=== PATIENT | male | born 1950 | race Caucasian/White ===

== ENCOUNTER 2018-01-23 04:23 | Inpatient (IN) | payer OTHER ==
[2018-01-23] MEDS ORDERED: FENTANYL CITR 100 MCG/2 ML ONE ×2 (04:51→11:47)
[2018-01-23] MEDS ORDERED: NA CHLORIDE 0.9% 1,000 ML ONE (04:51)
[2018-01-23] MEDS ORDERED: FAMOTIDINE 20 MG/2 ML VIAL IV ONE (04:51)
[2018-01-23] MEDS ORDERED: ONDANSETRON 4 MG/2 ML VIAL ONE ×2 (04:53→07:17)
[2018-01-23 05:06] LABS: Absolute Lymphocytes (CBC) 1.3 K/uL (0.7-4.9); Absolute Monocytes 1.1 K/uL (0.1-1.3); Absolute Neutrophil 12.2 K/uL (1.8-8.0); Basophils % 0.2 % (0-1.3); Eosinophils % 0.2 % (0-4.4); Hematocrit 46.4 % (39.6-49.0); MCH 32.5 pg (27.0-35.0); MCV 92.4 fL (80-100); MPV 11.4 fL (7.6-11.3); Monocytes % 7.3 % (3.3-12.3); RBC Red Blood Cell Count 5.02 M/uL (4.33-5.43)
[2018-01-23 05:37] LABS: Albumin 4.2 g/dL (3.4-5.0); Bilirubin Direct 0.2 mg/dL (0-0.2); Bilirubin Total 0.6 mg/dL (0.2-1.0); CKMB Creatine Kinase MB 1.9 ng/mL (0.3-3.6); Magnesium 1.9 mg/dL (1.8-2.4); Potassium 3.7 mmol/L (3.5-5.1); Protein, Total 7.8 g/dL (6.4-8.2)
--- NOTE | 2018-01-23 07:02 | EKG ---
Test Date: 2018-01-23 Test Time: 04:47:41 Survey Coordinator: [place] MEASUREMENT RESULTS: Intervals: Rate: 56 OK: 166 QRSD: 92 QT: 420 QTc: 405 Covel: P: 63 OK: 166 QRS: -17 T: 31 INTERPRETIVE STATEMENTS: Sinus bradycardia with sinus arrhythmia Otherwise normal ECG Compared to ECG 03/30/2009 12:44:36 No significant changes Electronically Signed On 01-23-18 07:01:15 CDT by Malik Romero
--- NOTE | 2018-01-23 07:06 | EDPHYS ---
Physician Documentation [facility] Name: Yves Joiner Age: 67 yrs Sex: Male : 1950 Arrival Date: 01/23/2018 Time: 04:26 Bed 6 Private MD: Antwan Hackett ED Physician Zurdo Rogers HPI: 01/23 04:53 This 67 yrs old Male presents to ER via Ambulatory with complaints of bk Abdominal Pain. 04:53 The patient presents with abdominal pain in the epigastric area, in the upper abdomen, bk abdominal distention in the epigastric area, in the upper abdomen. Onset: The symptoms/episode began/occurred this morning. The symptoms radiate to Associated signs and symptoms: Pertinent positives: nausea. The symptoms are described as crampy. Modifying factors: The symptoms are alleviated by nothing, the symptoms are aggravated by food, pressure. Severity of pain: At its worst the pain was moderate in the emergency department the pain is unchanged. The patient has not experienced similar symptoms in the past. Historical: - Allergies: 04:42 No Known Allergies; tl2 - Home Meds: 04:42 bisoprolol fumarate oral oral [Active]; atorvastatin oral oral [Active]; Metformin Oral tl2 [Active]; B12 [Active]; - PMHx: 04:42 Hyperlipidemia; Hypertension; tl2 - PSHx: 04:42 Appendectomy; tl2 - Immunization history:: Adult Immunizations up to date. - Social history:: Smoking status: Patient/guardian denies using tobacco. - Ebola Screening: : No symptoms or risks identified at this time. - Family history:: not pertinent. ROS: 04:53 Constitutional: Negative for fever, chills, and weight loss, Eyes: Negative for injury, bk pain, redness, and discharge, ENT: Negative for injury, pain, and discharge, Neck: Negative for injury, pain, and swelling, Cardiovascular: Negative for chest pain, palpitations, and edema, Respiratory: Negative for shortness of breath, cough, wheezing, and pleuritic chest pain, Back: Negative for injury and pain, : Negative for injury, bleeding, discharge, and swelling, MS/Extremity: Negative for injury and deformity, Skin: Negative for injury, rash, and discoloration, Neuro: Negative for headache, weakness, numbness, tingling, and seizure, Psych: Negative for depression, anxiety, suicide ideation, homicidal ideation, and hallucinations, Allergy/Immunology: Negative for hives, rash, and allergies, Endocrine: Negative for neck swelling, polydipsia, polyuria, polyphagia, and marked weight changes, Hematologic/Lymphatic: Negative for swollen nodes, abnormal bleeding, and unusual bruising. 04:53 Abdomen/GI: Positive for abdominal pain, nausea, abdominal cramps, of the epigastric area and right upper quadrant. Exam: 04:53 Constitutional: This is a well developed, well nourished patient who is awake, alert, bk and in no acute distress. Head/Face: Normocephalic, atraumatic. Eyes: Pupils equal round and reactive to light, extra-ocular motions intact. Lids and lashes normal. Conjunctiva and sclera are non-icteric and not injected. Cornea within normal limits. Periorbital areas with no swelling, redness, or edema. ENT: Nares patent. No nasal discharge, no septal abnormalities noted. Tympanic membranes are normal and external auditory canals are clear. Oropharynx with no redness, swelling, or masses, exudates, or evidence of obstruction, uvula midline. Mucous membranes moist. Neck: Trachea midline, no thyromegaly or masses palpated, and no cervical lymphadenopathy. Supple, full range of motion without nuchal rigidity, or vertebral point tenderness. No Meningismus. Chest/axilla: Normal chest wall appearance and motion. Nontender with no deformity. No lesions are appreciated. Cardiovascular: Regular rate and rhythm with a normal S1 and S2. No gallops, murmurs, or rubs. Normal PMI, no JVD. No pulse deficits. Respiratory: Lungs have equal breath sounds bilaterally, clear to auscultation and percussion. No rales, rhonchi or wheezes noted. No increased work of breathing, no retractions or nasal flaring. Back: No spinal tenderness. No costovertebral tenderness. Full range of motion. Male : Normal genitalia with no discharge or lesions. Skin: Warm, dry with normal turgor. Normal color with no rashes, no lesions, and no evidence of cellulitis. MS/ Extremity: Pulses equal, no cyanosis. Neurovascular intact. Full, normal range of motion. Neuro: Awake and alert, GCS 15, oriented to person, place, time, and situation. Cranial nerves II-XII grossly intact. Motor strength 5/5 in all extremities. Sensory grossly intact. Cerebellar exam normal. Normal gait. Psych: Awake, alert, with orientation to person, place and time. Behavior, mood, and affect are within normal limits. 04:53 Abdomen/GI: Inspection: distension, Bowel sounds: normal, Palpation: mild abdominal tenderness, moderate abdominal tenderness, in the epigastric area and right upper quadrant, Liver: no appreciated palpable abnormalities, Hernia: not appreciated. Vital Signs: 04:42 BP 163 / 93; Pulse 57; Resp 18; Temp 97.9(O); Pulse Ox 95% on R/A; Weight 102.06 kg; tl2 Height 6 ft. 0 in. (182.88 cm); Pain 7/10; 05:45 BP 138 / 80; Pulse 50; Resp 18; Pulse Ox 100% on R/A; tl2 06:33 BP 138 / 77; Pulse 78; Resp 18; Pulse Ox 98% on R/A; tl2 07:20 BP 133 / 70; Pulse 57; Resp 17; Pulse Ox 100% on R/A; Pain 7/10; tw2 08:08 BP 129 / 54; Pulse 60; Resp 17; Pulse Ox 100% on R/A; tw2 04:42 Body Mass Index 30.52 (102.06 kg, 182.88 cm) tl2 MDM: 04:33 Patient medically screened. [facility] 04:55 Data reviewed: vital signs, nurses notes, lab test result(s), EKG, radiologic studies, [facility] CT scan, plain films, ultrasound. 01/23 04:34 Order name: Basic Metabolic Panel; Complete Time: 05:38 [facility] 01/23 04:34 Order name: CBC with Diff; Complete Time: 05:38 [facility] 01/23 04:34 Order name: Ckmb; Complete Time: 05:38 [facility] 01/23 04:34 Order name: CPK; Complete Time: 05:38 [facility] 01/23 04:34 Order name: LFT's; Complete Time: 05:38 [facility] 01/23 04:34 Order name: Magnesium; Complete Time: 05:38 [facility] 01/23 04:34 Order name: NT PRO-BNP; Complete Time: 05:38 [facility] 01/23 04:34 Order name: PT-INR; Complete Time: 05:38 [facility] 01/23 04:34 Order name: Ptt, Activated; Complete Time: 05:38 [facility] 01/23 04:34 Order name: Troponin (emerg Dept Use Only) [facility] 01/23 04:34 Order name: Lipase; Complete Time: 05:38 [facility] 01/23 06:22 Order name: Urine Dipstick--Ancillary (enter results) ms 01/23 07:18 Order name: Basic Metabolic Panel EDMS 01/23 07:18 Order name: Basic Metabolic Panel EDSC 01/23 04:34 Order name: XRAY Chest (1 view) [facility] 01/23 04:56 Order name: US Abdomen Limited [facility] 01/23 05:43 Order name: Abdomen EDMS 01/23 07:18 Order name: CBC with Automated Diff EDSC 01/23 07:18 Order name: CBC with Automated Diff EDMS 01/23 07:18 Order name: Lipase EDMS 01/23 07:18 Order name: Lipase EDMS 01/23 07:18 Order name: Liver (Hepatic) Function EDMS 01/23 07:18 Order name: Liver (Hepatic) Function EDSC 01/23 04:34 Order name: EKG; Complete Time: 04:35 [facility] 01/23 04:34 Order name: Cardiac monitoring; Complete Time: 04:47 [facility] 01/23 04:34 Order name: EKG - Nurse/Tech; Complete Time: 04:47 [facility] 01/23 04:34 Order name: IV Saline Lock; Complete Time: 04:47 [facility] 01/23 04:34 Order name: Labs collected and sent; Complete Time: 04:47 [facility] 01/23 04:34 Order name: O2 Per Protocol; Complete Time: 04:47 [facility] 01/23 04:34 Order name: O2 Sat Monitoring; Complete Time: 04:47 [facility] 01/23 04:34 Order name: Urine Dipstick-Ancillary (obtain specimen); Complete Time: 06:22 [facility] 01/23 07:18 Order name: NPO EDMS Administered Medications: 04:55 Drug: Zofran 4 mg Route: IVP; Site: left antecubital; bb 04:59 Drug: NS 0.9% 1000 ml Route: IV; Rate: 1 bolus; Site: left antecubital; bb 04:59 Drug: fentaNYL (PF) 50 mcg Route: IVP; Site: left antecubital; bb 07:10 Follow up: Response: Pain is unchanged, physician notified tw2 05:00 Drug: Pepcid 20 mg Route: IVP; Site: left antecubital; bb 07:20 Drug: Zofran 4 mg Route: IVP; Site: left antecubital; tw2 08:12 Follow up: Response: No adverse reaction tw2 07:22 Drug: morphine 4 mg Route: IVP; Site: left antecubital; tw2 08:12 Follow up: Response: No adverse reaction; Pain is unchanged, physician notified tw2 07:24 Drug: Zosyn 3.375 grams Route: IVPB; Infused Over: 60 mins; Site: left antecubital; tw2 08:25 Follow up: Response: No adverse reaction; IV Status: Completed infusion tw2 08:11 CANCELLED (Duplicate Order): Zofran 4 mg IVP once; over 2 minutes tw2 08:25 Drug: Dilaudid 0.5 mg Route: IVP; Site: left antecubital; tw2 08:41 Follow up: Response: Pain is decreased tw2 Disposition: 01/23/18 07:05 Hospitalization ordered by David Monzon for Inpatient Admission. Preliminary diagnosis are Cholecystitis, Cholelithiasis, Abdominal tenderness, Elevated white blood cell count, Unspecified kidney failure - insufficency. - Bed requested for Telemetry/MedSurg (Inpatient). - Status is Inpatient Admission. tw2 - Condition is Fair. - Problem is new. - Symptoms have improved. UTI on Admission? No Signatures: Dispatcher [employer] EDSC Kerrie Kitchen RN RN mw Anderson, Corey, MD MD cha Ballard, Brenda, RN RN bb Wise, Tara, RN RN tw2 Delmis Ba, RN RN tl2 Corrections: (The following items were deleted from the chart) 05:43 04:35 Abdomen Pelvis W Con+CT.RAD.BRZ ordered. [facility] EDSC 07:39 07:05 Hospitalization Ordered by David Monzon MD for Inpatient Admission. Preliminary diagnosis is Cholecystitis; Cholelithiasis; Abdominal tenderness; Elevated white blood cell count; Unspecified kidney failure - insufficency. Bed requested for Telemetry/MedSurg (Inpatient). Status is Inpatient Admission. Condition is Fair. Problem is new. Symptoms have improved. UTI on Admission? No. bk 08:11 08:06 Zofran 4 mg IVP once; over 2 minutes ordered. [facility] tw2 08:45 07:39 01/23/2018 07:05 Hospitalization Ordered by David Monzon MD for Inpatient tw2 Admission. Preliminary diagnosis is Cholecystitis; Cholelithiasis; Abdominal tenderness; Elevated white blood cell count; Unspecified kidney failure - insufficency. Bed requested for Telemetry/MedSurg (Inpatient). Status is Inpatient Admission. Condition is Fair. Problem is new. Symptoms have improved. UTI on Admission? No. mw
--- NOTE | 2018-01-23 07:06 | ER ---
Nurse's Notes [facility] Name: Yves Joiner Age: 67 yrs Sex: Male : 1950 Arrival Date: 01/23/2018 Time: 04:26 Bed 6 Private MD: Antwan Hackett Diagnosis: Cholecystitis;Cholelithiasis;Abdominal tenderness;Elevated white blood cell count;Unspecified kidney failure-insufficency Presentation: 01/23 04:39 Presenting complaint: Patient states: Epigastric/abdominal pain since 1600 yesterday. tl2 Denies NVD. Transition of care: patient was not received from another setting of care. Onset of symptoms was January 22, 2018 at 16:00. Risk Assessment: Do you want to hurt yourself or someone else? Patient reports no desire to harm self or others. Initial Sepsis Screen: Does the patient meet any 2 criteria? No. Patient's initial sepsis screen is negative. Does the patient have a suspected source of infection? No. Patient's initial sepsis screen is negative. Care prior to arrival: None. 04:39 Method Of Arrival: Ambulatory tl2 04:39 Acuity: KENDAL 3 tl2 Triage Assessment: 04:42 General: Appears in no apparent distress. uncomfortable, Behavior is calm, cooperative, tl2 appropriate for age. Pain: Complains of pain in epigastric area, right upper quadrant and left upper quadrant Pain does not radiate. Pain currently is 7 out of 10 on a pain scale. Quality of pain is described as sharp, Is continuous. Neuro: Level of Consciousness is awake, alert, obeys commands, Oriented to person, place, time, situation. Cardiovascular: Denies chest pain. Respiratory: Airway is patent Respiratory effort is even, unlabored, Respiratory pattern is regular, symmetrical. GI: Patient currently denies diarrhea, nausea, vomiting. : No signs and/or symptoms were reported regarding the genitourinary system. Derm: Skin is pink, warm \T\ dry. Historical: - Allergies: 04:42 No Known Allergies; tl2 - Home Meds: 04:42 bisoprolol fumarate oral oral [Active]; atorvastatin oral oral [Active]; Metformin Oral tl2 [Active]; B12 [Active]; - PMHx: 04:42 Hyperlipidemia; Hypertension; tl2 - PSHx: 04:42 Appendectomy; tl2 - Immunization history:: Adult Immunizations up to date. - Social history:: Smoking status: Patient/guardian denies using tobacco. - Ebola Screening: : No symptoms or risks identified at this time. - Family history:: not pertinent. Screenin:46 Abuse screen: Denies threats or abuse. Nutritional screening: No deficits noted. tl2 Tuberculosis screening: No symptoms or risk factors identified. Fall Risk None identified. Assessment: 04:46 General: see triage assessment. tl2 07:43 GI: Bowel sounds present X 4 quads. Abd is soft X 4 quads. tw2 Vital Signs: 04:42 BP 163 / 93; Pulse 57; Resp 18; Temp 97.9(O); Pulse Ox 95% on R/A; Weight 102.06 kg; tl2 Height 6 ft. 0 in. (182.88 cm); Pain 7/10; 05:45 BP 138 / 80; Pulse 50; Resp 18; Pulse Ox 100% on R/A; tl2 06:33 BP 138 / 77; Pulse 78; Resp 18; Pulse Ox 98% on R/A; tl2 07:20 BP 133 / 70; Pulse 57; Resp 17; Pulse Ox 100% on R/A; Pain 7/10; tw2 08:08 BP 129 / 54; Pulse 60; Resp 17; Pulse Ox 100% on R/A; tw2 04:42 Body Mass Index 30.52 (102.06 kg, 182.88 cm) tl2 ED Course: 04:26 Patient arrived in ED. al2 04:27 Antwan Hackett MD is Private Physician. al2 04:33 Zurdo Rogers MD is Attending Physician. bk 04:39 Triage completed. tl2 04:42 Arm band placed on right wrist. EKG completed in triage. Results shown to MD. tl2 04:46 Patient has correct armband on for positive identification. Bed in low position. Call tl2 light in reach. Side rails up X 1. Adult w/ patient. 04:46 Inserted saline lock: 20 gauge in left antecubital area, using aseptic technique. Blood tl2 collected. placed by ALICE Carter. 04:47 Delmis Ba RN is Primary Nurse. tl2 05:24 X-ray completed. Patient tolerated procedure well. kw 05:26 XRAY Chest (1 view) In Process Unspecified. EDMS 06:04 Abdomen In Process Unspecified. EDMS 06:34 Patient taken to ultrasound. traci 06:53 David Monzon MD is Hospitalizing Provider. bk 07:00 US Abdomen Limited In Process Unspecified. EDMS 07:19 Patient moved back from ultrasound. traci 07:42 Awaiting: attempted to call report, was told the nurse doesn't know she is getting a tw2 patient yet. 07:43 No provider procedures requiring assistance completed. Patient admitted, IV remains in tw2 place. 08:14 Awaiting: attempted to call report, on hold for 10 minutes, called back, left on hold tw2 again. Administered Medications: 04:55 Drug: Zofran 4 mg Route: IVP; Site: left antecubital; bb 04:59 Drug: NS 0.9% 1000 ml Route: IV; Rate: 1 bolus; Site: left antecubital; bb 04:59 Drug: fentaNYL (PF) 50 mcg Route: IVP; Site: left antecubital; bb 07:10 Follow up: Response: Pain is unchanged, physician notified tw2 05:00 Drug: Pepcid 20 mg Route: IVP; Site: left antecubital; bb 07:20 Drug: Zofran 4 mg Route: IVP; Site: left antecubital; tw2 08:12 Follow up: Response: No adverse reaction tw2 07:22 Drug: morphine 4 mg Route: IVP; Site: left antecubital; tw2 08:12 Follow up: Response: No adverse reaction; Pain is unchanged, physician notified tw2 07:24 Drug: Zosyn 3.375 grams Route: IVPB; Infused Over: 60 mins; Site: left antecubital; tw2 08:25 Follow up: Response: No adverse reaction; IV Status: Completed infusion tw2 08:11 CANCELLED (Duplicate Order): Zofran 4 mg IVP once; over 2 minutes tw2 08:25 Drug: Dilaudid 0.5 mg Route: IVP; Site: left antecubital; tw2 08:41 Follow up: Response: Pain is decreased tw2 Outcome: 07:05 Decision to Hospitalize by Provider. bk 08:30 Admitted to Med/surg accompanied by tech, via wheelchair, room 232, Report called to tw2 alice bejarano 08:30 Condition: stable 08:30 Instructed on the need for admit. 08:45 Patient left the ED. tw2 Signatures: Dispatcher [employer] Zurdo Rodriguez MD MD cha Ballard, Brenda RN RN Gretta Camacho Jacques jd Wise, Tara, RN RN tw2 Delmis Ba RN RN tl2 Michelle, Rocio velasquez2
[2018-01-23] MEDS ORDERED: MORPHINE 4 MG/ML SYR IV PRN (07:12)
[2018-01-23] MEDS ORDERED: PIPER/TAZO/NS 3.375gm 3.375 GM/100 ML BAG ONE (07:12)
[2018-01-23] MEDS ORDERED: ONDANSETRON 4 MG/2 ML VIAL IV PRN (07:12)
[2018-01-23] MEDS ORDERED: MORPHINE 4 MG/ML SYR ONE (07:16)
[2018-01-23] MEDS: NA CHLORIDE 0.9% 1,000 ML IV SCH ×2 (08:00→15:19)
[2018-01-23] MEDS ORDERED: HYDROMORPHONE HCL 0.5 MG/0.5 ML INJ ONE (08:23)
--- NOTE | 2018-01-23 08:43 | RAD REPORT ---
EXAM DESCRIPTION: RAD - Chest Single View - 01/23/2018 5:26 am CLINICAL HISTORY: Cough;Abdominal distention Chest pain. COMPARISON: CHEST PA AND LAT 2 VIEW dated 04/19/2014; ABDOMEN 1 VIEW KUB dated 07/03/2012; CHEST PA A ND LAT 2 VIEW dated 06/23/2012; CHEST PA AND LAT 2 VIEW dated 06/18/2011 FINDINGS: Portable technique limits examination quality. The lungs are grossly clear. The heart is normal in size. No displaced fractures. IMPRESSION: No acute intrathoracic process suspected.
--- NOTE | 2018-01-23 08:50 | RAD REPORT ---
EXAM DESCRIPTION: CT - Abdomen Pelvis Wo Contrast - 01/23/2018 7:06 am CLINICAL HISTORY: Abdominal pain. ABD PAIN COMPARISON: Abdomen Exam Limited dated 01/23/2018 TECHNIQUE: CT imaging of the abdomen and pelvis was performed without contrast. Solid organ and vasc ular assessment is limited due to lack of IV contrast. All CT scans are performed using dose optimization technique as appropriate and may include automated exposure control or mA/KV adjustment according to patient size. FINDINGS: The lower lung el are clear.Small gallstone is present in gallbladder. The gallbladder appears distended with trace pericholecystic fluid along the fundus. The liver contains several low-density lesions of varying size, the largest in the left lobe measurin g 3 cm and the largest in the inferior right lobe measuring 1.4 cm. These are nonspecific but favored to represent benign cysts or other benign hepatic lesions. No intrahepatic biliary dilatation. The s pleen, pancreas, adrenal glands and left kidney are within normal limits for a limited non-contrast e xamination.Small stones are seen in the inferior right kidney the largest measuring 3 mm. No hydronep hrosis. No bowel obstruction, free air, free fluid or abscess. Sigmoid diverticulosis is present without dive rticulitis. The appendix appears absent. The osseous structures are within normal limits. IMPRESSION: Cholelithiasis is noted with gallbladder distention and trace pericholecystic fluid susp ected. Early acute cholecystitis is suspected. Right nephrolithiasis without hydronephrosis. A limited non-contrast examination was performed as detailed.
--- NOTE | 2018-01-23 08:57 | RAD REPORT ---
EXAM DESCRIPTION: US - Abdomen Exam Limited - 01/23/2018 7:00 am CLINICAL HISTORY: ABD PAIN COMPARISON: No comparisons FINDINGS: The gallbladder demonstrates several small shadowing gallstones. The gallbladder wall is m ildly thickened measuring up to 5 mm. Trace pericholecystic fluid is also likely present. The common bile duct is normal measuring 5 mm. The liver demonstrates no findings of intrahepatic biliary dilatation. IMPRESSION: Cholelithiasis with findings of early cholecystitis suspected.
[2018-01-23] MEDS: FAMOTIDINE 20 MG/2 ML VIAL IV SCH ×2 (09:00→21:03)
[2018-01-23 09:23] VITALS: BMI 30.9
[2018-01-23] MEDS ORDERED: Ringers Lactate 1,000 ML IV ONE (11:27)
[2018-01-23] MEDS ORDERED: PROPOFOL 200 MG/20 ML VIAL IV ONE ×2 (11:47→14:01)
[2018-01-23] MEDS ORDERED: ROCURONIUM 50 MG/5 ML VIAL IV ONE (11:47)
[2018-01-23] MEDS ORDERED: LIDOCAINE 1% MPF 5 ML VIAL ONE (11:47)
[2018-01-23] MEDS ORDERED: MIDAZOLAM HCL 2 MG/2 ML INJ ONE (11:47)
[2018-01-23 12:19] LABS: Urine Blood TRACE (NEG); Urine Glucose NEGATIVE (NEG); Urine Protein NEGATIVE (NEG); Urine Specific Gravity 1.025 (1.005-1.030)
--- NOTE | 2018-01-23 13:00 | P.HP ---
Date of Service: 01/23/18 PC: This 67-year-old male presents emergency room with severe right upper quadrant abdominal pain for diagnosis and treatment. HPC: Patient has been experiencing right upper quadrant abdominal pain, radiating into his back, since last night. Was unable to get relief. Pain was in the upper portion of the abdomen, going straight through to his back, right between the shoulder blades. Has had episodes of this off and on over the last few months and years. PMH: Enlarged prostate PSHx: Previous appendectomy SOC: No known allergy SYS REVIEW: No cough, wheeze, shortness of breath. No chest pain or palpitations. Denies any urinary complaints. States that he had severe pain when they did is ultrasound O/E awake alert comfortable at the moment HEENT: Not jaundiced Chest: Clear ABD: Mild right upper quadrant tenderness LOCO: Intact DATA: Ultrasound shows evidence of cholecystitis with cholelithiasis IMPRESSION: Cholecystitis with cholelithiasis, biliary colic PLAN: I will take him to the operating room for laparoscopic possible open cholecystectomy with intraoperative cholangiogram. The risks of this procedure have been discussed. The possibility of bleeding, infection, injury to bile ducts blood vessels and intestines has been described. The possible need for an open and/or further surgeries and procedures was discussed. He understands and wants us to proceed.
[2018-01-23] MEDS ORDERED: KETOROLAC 30 MG/ML INJ ONE (13:45)
[2018-01-23] MEDS ORDERED: GLYCOPYRROLATE 0.2 MG/ML SYR ONE (13:45)
[2018-01-23] MEDS ORDERED: ONDANSETRON HCL 40 MG/20 ML VIAL ONE (13:46)
[2018-01-23] MEDS ORDERED: NEOSTIGMINE 1 MG/ML -5 ML SYRINGE ONE (13:46)
--- NOTE | 2018-01-23 14:31 | P.OP ---
Preoperative diagnosis: Acute on chronic cholecystitis with cholelithiasis Postoperative diagnosis: The same Primary procedure: Laparoscopic cholecystectomy Secondary procedure: Cholangiogram Anesthesia: General Estimated blood loss: Less than 10 cc Specimen: 1 gallbladder and contents Findings: Stone stuck in the cystic duct Operative Technique: The patient was brought to the operating room placed supine on the table. After the induction of adequate general endotracheal anesthesia, the area of the abdomen is prepped with a DuraPrep solution, and draped in the usual aseptic manner. A subumbilical incision was made. This brought down through the skin and subcutaneous tissue. The Visiport was used to enter the peritoneal cavity and created pneumoperitoneum to approximately 12 mm of mercury. Under direct vision a 5 mm trocar was placed in the upper midline, and 2 other 5 mm trocars on the right lateral side. The patient's head was then elevated and rolled towards the radio control crane operator's side. We could see a markedly inflamed gallbladder. It was obviously distended and edematous. It was adherent to the surrounding omentum. The omentum was swept away from the serosal surface. Due to the distention of the gallbladder was necessary to aspirate its contents. We encounter white bile consistent with a hydrops of the gallbladder. A grasper was placed on the fundus of the gallbladder. Another 1 was placed down by Alva's pouch. Applying lateral traction we were able to dissect and expose the cystic duct and artery. The artery was dealt with 1st. It was clipped and divided in the usual manner. A clip was then placed between the gallbladder and the cystic duct. An opening was made into the cystic duct. We attempted then to pass the cholangiocath into the cystic duct. Initial attempts were unsuccessful. At this point manipulation of the cystic duct allowed us to express a small black stone from the cystic duct. The catheter now easily passed. The cholangiogram demonstrated no evidence of any filling defects in the extrahepatic biliary tree. The catheter was removed. Clips were now placed on the distal portion of the cystic duct. The cystic duct was then divided. The gallbladder was now dissected free from the liver bed, placed into an Endo-Catch, and brought out through the umbilical trocar site. It was noted that the patient does have an umbilical hernia This was approximated as well as the fascial defect. The gallbladder fossa was inspected to ensure adequate hemostasis. It was irrigated with a saline solution and the irrigant aspirated from the peritoneal cavity. 0.25% Marcaine was aerosolized into the right upper quadrant and the gallbladder fossa. The umbilical trocar site was now approximated with an Endo Close and an absorbable sutures. The pneumoperitoneum was then collapsed, the suture tied, and margot applied to the skin. A further 0.25% Marcaine was injected around are incision sites. At the end of the procedure the patient was in a stable condition when sent to the recovery room. Needle sponge instrument count were correct. 1 specimen was sent for histopathology. Complications: None Transferred to: Recovery Room Condition: Good
[2018-01-23 14:38] VITALS: O2SAT 100
[2018-01-23] MEDS: ACETAMINOPHEN 500 MG TAB PO PRN (15:29)
[2018-01-23] MEDS: PIPER/TAZO/NS 3.375gm 3.375 GM/100 ML BAG IVPB SCH (16:17)
[2018-01-23] MEDS: MORPHINE 4 MG/ML SYR IV PRN (17:04)
[2018-01-24] MEDS: ACETAMINOPHEN 500 MG TAB PO PRN (01:31)
[2018-01-24] MEDS: PIPER/TAZO/NS 3.375gm 3.375 GM/100 ML BAG IVPB SCH ×2 (01:33→09:00)
[2018-01-24] MEDS: NA CHLORIDE 0.9% 1,000 ML IV SCH ×2 (01:34→08:00)
[2018-01-24] MEDS: MORPHINE 4 MG/ML SYR IV PRN (06:39)
[2018-01-24] MEDS ORDERED: HYDROCODONE/APAP 7.5/325 MG TAB PO PRN (09:37)
[2018-01-24 09:44] VITALS: TEMP 98.2
[2018-01-24] MEDS: FAMOTIDINE 20 MG/2 ML VIAL IV SCH (10:11)
--- NOTE | 2018-01-24 13:01 | P.DS ---
Admission Date: 01/23/18 Discharge Date: 01/24/18 Disposition: ROUTINE DISCHARGE Discharge Condition: GOOD Procedures: Laparoscopic cholecystectomy with cholangiogram Brief History of Present Illness: Patient presents emergency room with severe right upper quadrant abdominal pain for diagnosis and treatment. Hospital Course: The patient was admitted with a diagnosis of acute cholecystitis with cholelithiasis, biliary colic. I saw the patient take him to the operating room for laparoscopic cholecystectomy. At that time a stone was found impacted in the cystic duct. It was removed showed no evidence of any other filling defects. The patient tolerated the procedure well, and was sent to recovery room in stable condition. He was admitted postoperatively for observation pain control. Today he is up ambulating, his pain is controlled, he is deemed fit for discharge. Vital Signs/Physical Exam: Temp Pulse Resp BP Pulse Ox 98.2 F 70 18 125/67 92 01/24/18 08:00 01/24/18 08:00 01/24/18 08:00 01/24/18 08:00 01/24/18 08:00 Laboratory Data at Discharge: WBC 14.7 K/uL (4.3-10.9) H 01/23/18 04:40 Hgb 16.3 g/dL (13.6-17.9) 01/23/18 04:40 Hct 46.4 % (39.6-49.0) 01/23/18 04:40 Plt Count 157 K/uL (152-406) 01/23/18 04:40 PT 11.8 SECONDS (9.5-12.5) 01/23/18 04:40 INR 1.00 01/23/18 04:40 APTT 31.0 SECONDS (24.3-36.9) 01/23/18 04:40 Sodium 140 mmol/L (136-145) 01/23/18 04:40 Potassium 3.7 mmol/L (3.5-5.1) 01/23/18 04:40 BUN 20 mg/dL (7-18) H 01/23/18 04:40 Creatinine 1.40 mg/dL (0.55-1.3) H 01/23/18 04:40 Glucose 115 mg/dL (74-106) H 01/23/18 04:40 Magnesium 1.9 mg/dL (1.8-2.4) 01/23/18 04:40 Total Bilirubin 0.6 mg/dL (0.2-1.0) 01/23/18 04:40 AST 21 U/L (15-37) 01/23/18 04:40 ALT 40 U/L (12-78) 01/23/18 04:40 Alkaline Phosphatase 98 U/L (45-117) 01/23/18 04:40 Lipase 210 U/L (73-393) 01/23/18 04:40 Home Medications: Aspirin 81 mg PO DAILY 01/23/18 Atorvastatin Calcium [Lipitor] 10 mg PO BEDTIME 01/23/18 Bisoprolol Fumarate/Hctz [Bisoprolol-Hctz 2.5-6.25 mg Tb] 1 each PO BEDTIME Metformin HCl [Glucophage] 500 mg PO BIDWM 01/23/18 Tamsulosin [Flomax] 0.4 mg PO DAILY 01/23/18 Followup: David Monzon MD [ACTIVE - CAN ADMIT] - 01/30/18
[2018-01-24 15:19] VITALS: BP 134/67
--- NOTE | 2018-02-06 09:30 | RAD REPORT ---
EXAM DESCRIPTION: RAD - Cholangiogram Oper-Xray Or - 01/27/2018 8:50 am CLINICAL HISTORY: LAP BRIA W/ IOC Abdominal pain COMPARISON: Abdomen Exam Limited dated 01/23/2018 FINDINGS: Cystic duct injection was performed by operating surgeon. The common bile duct appears pro minent in size. A triangular filling defect is seen in the distal common bile duct which is suspiciou s for a retained stone. Total fluoro time: 0.1 minutes. Four images were obtained. IMPRESSION: Prominent common bile duct is noted with triangular filling defect in the distal common duct, suspicious for retained stone.
== END 2018-01-24 12:10 | disposition home or self-care (01) | DRG 419 ==
LOC: ER 04:23 → ERHOLD 07:10 → 2ND 08:29
PROVIDERS: ADMIT Surgery; ATTEND Surgery
PROC: BF101ZZ Fluoroscopy of Bile Ducts using Low Osmolar Contrast (ICD-10-PCS; 2018-01-23)
PROC: 0FT44ZZ Resection of Gallbladder, Percutaneous Endoscopic Approach (ICD-10-PCS; principal; 2018-01-23 12:00)
DX: K80.13 Calculus of gallbladder with acute and chronic cholecystitis with obstruction (principal); E78.5 Hyperlipidemia, unspecified; I10 Essential (primary) hypertension; G47.33 Obstructive sleep apnea (adult) (pediatric); E11.9 Type 2 diabetes mellitus without complications; N40.0 Benign prostatic hyperplasia without lower urinary tract symptoms
CPT/HCPCS: 36415; 71045; 74176; 74300; 76705; 80048; 80076; 81003; 82550; 82553; 83690; 83735; 83880; 84484; 85025; 85610; 85730; 88304; 93005; 96365; 96375; 99285; J1170; J2250; J2405; J2543; J2710; J3010; J7030; Q9967